=== PATIENT | female | born 1985 | race Hispanic/Latino ===

== ENCOUNTER 2018-10-07 19:17 | Emergency (ER) | payer OTHER, SELFPAY | END 2018-10-07 20:45 | disposition home or self-care (01) | LOC: ERS 19:17 | DX: Z20.2 Contact with and (suspected) exposure to infections with a predominantly sexual mode of transmission (principal); F17.210 Nicotine dependence, cigarettes, uncomplicated | CPT/HCPCS: 99281 ==

== ENCOUNTER 2024-04-23 15:12 | Emergency (ER) | payer SELFPAY | END 2024-04-23 15:48 | disposition home or self-care (01) | LOC: ERS 15:12 | DX: H66.42 Suppurative otitis media, unspecified, left ear (principal); F17.290 Nicotine dependence, other tobacco product, uncomplicated; Z75.3 Unavailability and inaccessibility of health-care facilities | CPT/HCPCS: 99282 ==